=== PATIENT | female | born 1995 | race Caucasian/White ===

== ENCOUNTER → 2018-07-05 04:16 | Observation (INO) ==
[2018-07-05 03:36] LABS: Amphetamine Screen,Urine Negative ng/mL (Cutoff=1000); Barbiturate Screen,Urine Negative ng/mL (Cutoff=200); Benzodiazepines Screen,Urine Negative ng/mL (Cutoff=200); Cannabinoid Screen,Urine Negative ng/mL (Cutoff = 50); Cocaine Screen,Urine Negative ng/mL (Cutoff= 300); Opiate Screen,Urine Negative ng/mL (Cutoff=300); Phencyclidine Screen,Urine Negative ng/mL (Cutoff=25)
--- NOTE | 2018-07-05 08:02 | OB/GYN Progress Note ---
Date of Encounter: 07/05/18 Time of Encounter: 08:00 - Assessment and Plan (1) Orlando Sarabia contractions Status: Acute Follow up with OB as scheduled Advice given on BHC vs true labor and how to rule out Discharge home (2) NST (non-stress test) reactive on surveillance Status: Acute Subjective - Subjective Interval history: Ms. Mathur presents with c/o r/o labor. She endorses good fm and denies lof, vb. Antepartum ROS: new complaints, contractions Objective - Vital Signs Vital Signs: Intake and Output 07/04/18 07/05/18 07/05/18 23:59 07:59 15:59 Other: Weight 74.117 kg Patient Weight 07/05/18 23:59 Weight 74.117 kg - Exam FHR: auscultation normal, category 1 Auscultation: bilateral: normal Abdomen: Present: normal appearance, soft, gravid Uterus: Present: normal, firm Cervical dilation: 1 Cervix effacement: 50 station: -2
== END | disposition home or self-care (01) ==
LOC: 1NENULAB
PROVIDERS: ADMIT Advanced Practice Midwife; ATTEND Advanced Practice Midwife

== ENCOUNTER → 2021-05-09 20:05 | Observation (INO) ==
[~2021-05-09 20:05] MED LIST: Morphine Sulfate 2 MG/ML SYRINGE SQ ONE
== END | disposition home or self-care (01) ==
LOC: 1NENULAB
PROVIDERS: ADMIT Registered Nurse; ATTEND Registered Nurse

== ENCOUNTER 2021-05-25 14:51 | Inpatient (IN) ==
[2021-05-25] MEDS ORDERED: Ringers Solution, Lactated 1,000 ML ONE (15:18)
[2021-05-25] MEDS ORDERED: Ondansetron 4 MG/2 ML VIAL IVP PRN (15:23)
[2021-05-25] MEDS ORDERED: Metoclopramide 10 MG/2 ML VIAL IVP PRN (15:23)
[2021-05-25] MEDS ORDERED: *HR* Nalbuphine 10 MG/ML AMPUL IV PRN (15:23)
[2021-05-25] MEDS ORDERED: Azithromycin 500 MG in 0.9 % Sodium Chloride 250 ML IVPB PRN (15:23)
[2021-05-25] MEDS ORDERED: Famotidine 20 MG/2 ML VIAL IVP PRN (15:23)
[2021-05-25] MEDS ORDERED: Naloxone 0.4 MG/ML INJ IVP PRN (15:23)
[2021-05-25] MEDS ORDERED: EPHEDrine 50 MG/ML VIAL IVP PRN (15:55)
[2021-05-25] MEDS ORDERED: Epidural Premix (fent/bupiv) 110 ML EP SCH (16:00)
[2021-05-25 16:26] LABS: Influenza A PCR Negative (Negative); Influenza B PCR Negative (Negative); Resp. Syncytial Virus PCR Negative (Negative)
[2021-05-25 16:27] LABS: Basophils % 0.5 %; Eosinophils # 0.6 K/mcL (0.0-0.6); Eosinophils % 6.9 %; Hematocrit 38.2 % (35.3-44.9); Hemoglobin 12.2 g/dL (11.5-15.4); Lymphocytes # 1.4 K/mcL (0.6-4.6); Lymphocytes % 16.4 %; Mean Corpuscular HGB Conc 31.9 g/dL (31.6-35.5); Mean Corpuscular Hemoglobin 27.9 pg (28.0-33.3); Mean Corpuscular Volume 87.2 fL (83.0-100.0); Mean Platelet Volume 11.1 fL (9.4-12.4); Monocytes % 11.1 %; Neutrophils # 5.5 K/mcL (1.6-8.9); Platelet Count 193 K/mcL (140-400); Red Blood Count 4.38 M/mcL (3.82-4.97); Red Cell Distribution Width 13.5 % (11.5-14.5); SARS-CoV-2 by PCR (In House) Negative (Negative); Segmented Neutrophils % 64.1 %; White Blood Count 8.6 K/mcL (4.3-11.1)
[2021-05-25 16:50] LABS: Amphetamine Screen,Urine Negative ng/mL (Cutoff=1000); Barbiturate Screen,Urine Negative ng/mL (Cutoff=200); Benzodiazepines Screen,Urine Negative ng/mL (Cutoff=200); Cannabinoid Screen,Urine Negative ng/mL (Cutoff = 50); Cocaine Screen,Urine Negative ng/mL (Cutoff= 300); Creatinine,Urine 56 mg/dL; Opiate Screen,Urine Negative ng/mL (Cutoff=300); Phencyclidine Screen,Urine Negative ng/mL (Cutoff=25)
[2021-05-25 16:53] LABS: Alanine Aminotransferase 9 Units/L (7-52); Aspartate Amino Transferase 19 Units/L (13-39); BUN/Creatinine Ratio 9 (6-26); Blood Urea Nitrogen 6 mg/dL (6-20); Lactate Dehydrogenase 165 Units/L (140-271); Uric Acid 5.2 mg/dL (2.3-7.6); eGFR For African Americans > 60 (> 60); eGFR For Non-African Americans > 60 (> 60)
[2021-05-25] MEDS: Ringers Solution, Lactated 1,000 ML IVC SCH ×2 (16:55→20:44)
[2021-05-25] MEDS ORDERED: Oxytocin 20 units/ LR 1000 mL 20 UNIT/1,000 ML BAG IVC SCH ×2 (19:30→23:03)
[2021-05-25] MEDS ORDERED: Benzocaine/Menthol 56 GM AEROSOL SPRAY TP PRN (23:03)
[2021-05-25] MEDS ORDERED: Ondansetron ODT 4 MG TAB.RAPDIS SL PRN (23:03)
[2021-05-26] MEDS: Ibuprofen 600 MG TABLET PO SCH ×4 (00:21→20:42)
[2021-05-26] MEDS: Acetaminophen 325 MG TABLET PO SCH ×3 (02:21→15:34)
[2021-05-26] MEDS: Prenatal Vit/FA 1 EACH TABLET PO SCH (08:13)
[2021-05-27] MEDS: Acetaminophen 325 MG TABLET PO SCH (00:08)
[2021-05-27] MEDS: Ibuprofen 600 MG TABLET PO SCH ×2 (03:41→06:51)
[2021-05-27] MEDS: Prenatal Vit/FA 1 EACH TABLET PO SCH (07:53)
[2021-05-27 08:15] VITALS: BP 109/58; PULSE 63; TEMP 97.9; O2SAT 99
== END 2021-05-27 11:51 | disposition home or self-care (01) | DRG 807 ==
LOC: 1NENULAB 14:51 → 1NENUOBS 23:48
PROVIDERS: ADMIT Registered Nurse; ATTEND Registered Nurse

== ENCOUNTER 2022-04-18 18:26 | Inpatient (IN) ==
[2022-04-18 13:37] LABS: Basophils % 0.4 %; Eosinophils # 0.3 K/mcL (0.0-0.6); Hematocrit 37.3 % (35.3-44.9); Hemoglobin 11.9 g/dL (11.5-15.4); Immature Granulocytes % 0.7 % (0-4); Lymphocytes # 1.4 K/mcL (0.6-4.6); Mean Corpuscular HGB Conc 31.9 g/dL (31.6-35.5); Mean Corpuscular Hemoglobin 28.6 pg (28.0-33.3); Mean Corpuscular Volume 89.7 fL (83.0-100.0); Mean Platelet Volume 11.3 fL (9.4-12.4); Monocytes # 0.9 K/mcL (0.0-1.3); Monocytes % 11.8 %; Neutrophils # 4.9 K/mcL (1.6-8.9); Platelet Count 160 K/mcL (140-400); Red Blood Count 4.16 M/mcL (3.82-4.97); Red Cell Distribution Width 13.8 % (11.5-14.5); Segmented Neutrophils % 65.1 %; White Blood Count 7.5 K/mcL (4.3-11.1)
[2022-04-18 13:42] LABS: Amphetamine Screen,Urine Negative ng/mL (Cutoff=1000); Barbiturate Screen,Urine Negative ng/mL (Cutoff=200); Benzodiazepines Screen,Urine Negative ng/mL (Cutoff=200); Cannabinoid Screen,Urine Negative ng/mL (Cutoff = 50); Cocaine Screen,Urine Negative ng/mL (Cutoff= 300); Opiate Screen,Urine Negative ng/mL (Cutoff=300); Phencyclidine Screen,Urine Negative ng/mL (Cutoff=25)
[~2022-04-18 18:26] MED LIST changes: +*HR* FentaNYL (PF) 100 MCG/2 ML VIAL EP ONE; +*HR* Nalbuphine 10 MG/ML AMPUL IV PRN; +EPHEDrine 50 MG/ML VIAL IVP PRN; +Epidural Premix (fent/bupiv) 110 ML EP SCH; +Famotidine 20 MG/2 ML VIAL IVP PRN; +Ibuprofen 600 MG TABLET PO ONE; +Metoclopramide 10 MG/2 ML VIAL IVP PRN; -Morphine Sulfate 2 MG/ML SYRINGE SQ ONE; +Naloxone 0.4 MG/ML INJ IVP PRN; +Ondansetron 4 MG/2 ML VIAL IVP PRN; +Oxytocin 30 UNIT/503 ML BAG IVC ONE; +Ringers Solution, Lactated 1,000 ML IVC SCH; +Ropivacaine/PF 0.2% 20 ML VIAL EP ONE; +Ropivacaine/PF 0.2% 20 ML VIAL ONE
[2022-04-18] MEDS ORDERED: *HR* OxyCODONE Immed Rel 5 MG TABLET PO PRN (21:18)
[2022-04-18] MEDS ORDERED: Measles/Mumps/Rubella Vacc 0.5 ML VIAL SQ PRN (21:18)
[2022-04-18] MEDS ORDERED: Benzocaine/Menthol 56 GM AEROSOL SPRAY TP PRN (21:18)
[2022-04-18] MEDS ORDERED: Ondansetron ODT 4 MG TAB.RAPDIS SL PRN (21:18)
[2022-04-18] MEDS ORDERED: Oxytocin 30 UNIT/503 ML BAG IVC SCH (21:18)
[2022-04-18] MEDS ORDERED: Lanolin 7 G OINT...G. TP PRN (21:18)
[2022-04-18] MEDS: Ibuprofen 600 MG TABLET PO SCH (21:41)
[2022-04-18] MEDS: Acetaminophen 325 MG TABLET PO SCH (21:41)
[2022-04-19] MEDS: Acetaminophen 325 MG TABLET PO SCH (05:23)
[2022-04-19] MEDS: Ibuprofen 600 MG TABLET PO SCH (05:24)
[2022-04-19] MEDS ORDERED: Prenatal Vit/FA 1 EACH TABLET PO SCH (09:00)
[2022-04-19 16:38] VITALS: BP 123/65; PULSE 63; TEMP 98.6; O2SAT 97
== END 2022-04-19 18:11 | disposition home or self-care (01) | DRG 807 ==
LOC: 1NENULAB → 1NENUOBS 20:56
PROVIDERS: ADMIT Advanced Practice Midwife; ATTEND Advanced Practice Midwife